=== PATIENT | female | born 1980 | race Caucasian/White ===

== ENCOUNTER 2018-04-15 05:36 | Day surgery (SDC) | payer BC ==
[~2018-04-15] VITALS: Ht 162.6 cm; Wt 52.8 kg
[2018-04-15] VITALS (9 sets, daily range): BP systolic 107–123; BP diastolic 64–69; PULSE 71–86; TEMP 97.7–97.8
[2018-04-15] MEDS ORDERED: IMITREX100 MG PO (06:12)
[2018-04-15] MEDS ORDERED: PHILLIPS COLON HEALT PO (06:13)
[2018-04-15] MEDS ORDERED: ROXICODONE 55 MG/TAB PO (12:15)
== END 2018-04-15 16:40 | disposition home or self-care (01) ==
LOC: SDCO 05:36
DX: K43.9 Ventral hernia without obstruction or gangrene (principal); M62.08 Separation of muscle (nontraumatic), other site
CPT/HCPCS: C1781; J0360; J0690; J1100; J1170; J2405; J2704; J3010; J7120